=== PATIENT | female | born 2000 | race Caucasian/White ===

== ENCOUNTER 2021-03-11 22:14 | Emergency (ER) | payer MEDICAID, SELFPAY ==
--- NOTE | 2021-03-12 00:50 | EX.ED.DYSGE1 ---
HPI Narrative Narrative: Patient is a 20-year-old female who states that she typically has bouts of nausea and vomiting around her menstrual cycle. She states it is about the time of the month for her menstrual cycle to begin in today she developed generalized abdominal discomfort with bouts of vomiting. She states that the vomiting seems more intense than it typically is with her menstrual cycle and secondary to this she comes in for evaluation. ROS ROS ED Constitutional Constitutional ED: Denies chills or fever(s) ENT ENT ED: Denies sore throat Cardiovascular Cardiovascular: Denies chest pain Respiratory/Chest Respiratory/Chest: Denies cough or dyspnea Gastrointestinal Gastrointestinal: Reports abdominal pain, nausea and vomiting; Denies diarrhea Genitourinary Genitourinary ED: Denies dysuria Musculoskeletal Musculoskeletal: Denies myalgias Integumentary Denies rash Neurologic Neurologic: Denies headache(s) Psychiatric Psychiatric: Reports anxiety Hematologic/Lymphatic Hematologic/Lymphatic: Denies easy bleeding or easy bruising EXAM Physical Exam Const Positive well nourished and well developed General Appearance ED: well developed HEENT Reports moist mucous membranes Eyes PERRL and EOMs intact bilaterally Neck supple Resp normal respiratory effort and clear to auscultation bilaterally Cardio regular rate and regular rhythm GI non-distended GI Narrative: Abdomen is soft and nondistended with hyperactive bowel sounds. There is mild diffuse pain on palpation but no voluntary guarding or rigidity Palpation: soft Extremity normal to inspection Neuro oriented x3 and CN's II-XII intact bilaterally Sensorium / Orientation: alert Psych Mood & Affect: anxious Skin no rashes or lesions noted MDM MDM MDM Narrative Medical decision making narrative: Patient presented to the ER in no acute distress with a soft nonsurgical abdomen. Therefore I felt no need for an emergent CT scan. I discussed with patient the need to have an IV placed and provide symptomatic care as well as get basic abdominal labs. Patient states that she does not want an IV or laboratory studies done at this time. I order oral Zofran which did not help her symptoms and therefore she agreed to an IM shot of Phenergan. The Phenergan reduced her symptoms and prevented any further nausea and vomiting. I did order a urine sample to confirm that this was not secondary to . However patient never urinated. She stated that she was feeling better and does not want any further evaluation at this time because the medications have helped. I discussed with her how we do not have a great answer for her symptoms because of her lack of laboratory studies and even a urine sample. Patient states she understands this but as she is feeling better would like to be discharged and therefore as she is awake alert and oriented I will comply with her request at this time Discharge Plan Triage ED Provider: Montrell Gomez Dx/Rx/DC Orders Clinical Impression: Nonspecific abdominal pain, Nausea & vomiting Instructions: Abdominal Pain, ED Vomiting (Adult) Primary Care Provider: Care Physician,No Primary Referrals: Care Physician,No Primary [Primary Care Provider] - Disposition Disposition: Home, Self Care
== END 2021-03-12 01:05 | disposition home or self-care (01) ==
PROVIDERS: Emergency Provider Emergency Medicine; Visit Provider Emergency Medicine
DX: K29.70 Gastritis, unspecified, without bleeding (principal); F41.9 Anxiety disorder, unspecified
CPT/HCPCS: 96372; 99283

== ENCOUNTER 2022-04-19 16:50 | Emergency (ER) | payer MEDICAID, SELFPAY ==
[2022-04-19 16:51] VITALS: BP 129/71; PULSE 120; RESP 18; TEMP 36.2; O2SAT 99; BMI 17.1
--- NOTE | 2022-04-19 17:21 | EX.ED.DYSGE1 ---
HPI History of Present Illness Chief Complaint: General Illness Detail of Chief Complaint: abd pain, vomiting, et al Informant: patient and parent (mother) Narrative Narrative: Patient again having episodes of lower abdominal pain and vomiting which she has been having approximately monthly for the past year or so according to her and mother. Today, she was vomiting without abdominal pain off-and-on, she has had poor oral intake lately including today. She then got into the bathtub at home by herself, she started getting numb and tingling in her fingers and toes bilaterally simultaneously, which then progressed to carpopedal spasms. She was not hyperventilating or anxious prior to this, but she was subsequently since she has never developed this before, she called her mom, she then called EMS who had to break the door down and come into her apartment to help her out of the tubs and she had trouble, now that her mom brought her here to the hospital and EMS helped calm her down, she states the tingling and spasms are completely resolved but she is having the lower abdominal pain and vomiting that she has had episodically for the past year or so. She states the abdominal pain is diffuse pelvic nonlateralizing. States she has been here before for this. She has never followed up as an outpatient for it. She does not see an FUNDS TRANSFER CLERK. She denies being that she knows of. She thinks her last normal menstrual period was 4 or 5 weeks ago she is not exactly sure. She states she thinks she may be starting soon but has no vaginal discharge or bleeding now. During the initial history, the patient is vomiting a couple times, there are specks of bile in it but no food or blood or coffee grounds, which makes her more anxious and tearful, subsequently after she vomits another time, she states suddenly she feels amazing and back to normal with complete resolution of her nausea and pelvic pain. PFSH PFSH Medical History no medical history no medical history Home Medications ondansetron 4 mg disintegrating tablet 8 mg PO Q8H PRN PRN Nausea #20 tabs 04/19/22 [Rx Last Taken Unknown] Allergy/AdvReac Type Severity Reaction Status Date / Time No Known Allergies Allergy Verified 04/19/22 16:55 Social History (Updated 04/19/22 @ 17:[address] Noe Mei MD) Smoking Status: Never smoker substance use type: marijuana ROS ROS ED Constitutional Constitutional ED: Denies chills or fever(s) Eyes Eyes: Denies change in vision or diplopia ENT ENT ED: Denies rhinorrhea or sore throat Cardiovascular Cardiovascular: Denies chest pain or palpitations Respiratory/Chest Respiratory/Chest: Denies cough or dyspnea Gastrointestinal Gastrointestinal: Reports abdominal pain, nausea and vomiting; Denies diarrhea or melena Genitourinary Genitourinary ED: Denies dysuria or hematuria Musculoskeletal Musculoskeletal: Denies back pain or neck pain Integumentary Denies abscess or rash Neurologic Neurologic: Reports paresthesias RUE, RLE, LUE and LLE; Denies headache(s) or weakness Psychiatric Psychiatric: Reports anxiety; Denies suicidal thoughts EXAM Physical Exam Const Vital Signs: 04/19/22 16:51 Temperature 97.2 F L Temperature Source Temporal Pulse Rate 120 H Respiratory Rate 18 Blood Pressure 129/71 H Blood Pressure Mean 90 Pulse Ox 99 Oxygen Delivery Method Room Air Positive well nourished and well developed General Appearance ED: well developed and NAD HEENT Reports moist mucous membranes normocephalic and atraumatic Eyes PERRL and EOMs intact bilaterally Neck full ROM and supple Resp normal respiratory effort and clear to auscultation bilaterally Cardio regular rate, regular rhythm and no murmurs GI non-tender and non-distended Auscultation: normoactive bowel sounds Palpation: soft Back/Spine no CVA tenderness General Back: other FROM Extremity normal to inspection General Extremety ED: Negative for edema, pulses abnormal or tenderness General Extremity: Negative for edema or pulses abnormal Neuro oriented x3, CN's II-XII intact bilaterally and no sensory deficits noted Sensorium / Orientation: awake and alert Motor Exam: strength 5/5 throughout Psych Psych Narrative: labile. initially tearful and panicky, later after vomiting, smiling and better. Skin no rashes or lesions noted and no wounds MDM MDM MDM Narrative Medical decision making narrative: Nursing attempted to obtain blood work and get an IV to give medications and fluids to the patient, but she became too anxious and then refused. We will give her some time and I went back to check on her and she said that she was amenable to having the nurse try again, but upon poking her with a needle the patient jerked out of the way, and refuses again saying that she changes her mind and states there is no way she can do this. She appears well and her vital signs are now normal. She was given ODT Zofran for the nausea and had no more vomiting here in the ED. I had a long talk with her with her mother present, about using marijuana. She admits that she uses it often, and specifically is using [id number]. I discussed with her the possibility that that is causing all of this and she has cannabis hyperemesis syndrome. I recommend that she discontinue using cannabis given all of these symptoms, and I am okay with her going home which she wants to do at this time. I gave her a prescription for Zofran. I gave her discharge instructions regarding cannabis hyperemesis syndrome, and we also discussed the differential could be including uterine cramping as etiology of her pain and vomiting. We discussed consideration of a pelvic ultrasound, however I do not think that is indicated emergently at this time since she is completely nontender and unlikely has a ruptured ovarian cyst or ovarian torsion as cause for the symptoms, we discussed those diagnoses in detail and she and mother both agree that that is very unlikely especially given that she has been having it monthly. I do advise outpatient FUNDS TRANSFER CLERK follow-up especially if she continues having symptoms despite discontinuing cannabis or its metabolites/alternatives. Discharge Plan Triage Chief Complaint: General Illness ED Provider: Noe Mei Dx/Rx/DC Orders Clinical Impression: Vomiting, Female pelvic pain, Cannabis use disorder Instructions: Cannabinoid Hyperemesis Syndrome, Understanding Synthetic Marijuana, ED Hyperventilation Syndrome Prescriptions: New ondansetron [ondansetron] 4 mg tablet,disintegrating 8 mg PO Q8H PRN PRN (Reason: Nausea) Qty: 20 0RF Primary Care Provider: Care Physician,No Primary Referrals: Catherine Mojica MD [Med Staff - Active Staff] - (call for follow up regarding your monthly abdominal pains/vomiting) Disposition Disposition: Home, Self Care
--- NOTE | 2022-04-19 18:15 | ED.RN ---
PT REFUSES X2 FOR THIS RN TO START AN IV OR OBTAIN BLOOD WORK
== END 2022-04-19 18:55 | disposition home or self-care (01) ==
PROVIDERS: Emergency Provider Emergency Medicine; Visit Provider Emergency Medicine
DX: R11.10 Vomiting, unspecified (principal); R10.2 Pelvic and perineal pain; F12.90 Cannabis use, unspecified, uncomplicated
CPT/HCPCS: 99282; J7030

== ENCOUNTER 2023-10-31 01:59 | Emergency (ER) | payer SELFPAY ==
[2023-10-31 01:59] VITALS: BP 126/70; PULSE 75; RESP 16; TEMP 36.8; BMI 19.1
--- NOTE | 2023-10-31 02:09 | ED.VIS.GI ---
HPI HPI - GI History of Present Illness Chief Complaint: Abd Pain Informant: patient Abdominal Pain/Flank Pain Onset: Days Context: Gradual Onset Timing: Continuous Quality: Cramping Location: Diffuse Current Severity: Mild Maximum Severity: Moderate Worsened by: Nothing Relieved by: Nothing Nausea/Vomiting/Emesis GI Symptom: Positive for Nausea and Vomiting Onset: Days Severity: Mild Diarrhea/Melena/Hematochezia GI Symptom: Negative for Diarrhea, Melena or Hematochezia Associated Symptoms Associated Symptoms: Negative for Dysuria, Frequency, Hematuria or Urgency Narrative Narrative: 22-year-old female currently on her menstrual period no seen past medical or surgical history. Planing of 2-day history of abdominal pain began on Saturday. Associated nausea vomiting. No dysuria. No fever. No diarrhea or constipation. She is on her menstrual cycle and that started around Saturday. Denies any discharge. No abdominal trauma. No prior abdominal surgeries. Prior similar symptoms: Yes Recent Illness/Hospitalization: No PFSH PFSH Medical History no medical history no medical history Home Medications ?Medication ?Instructions ?Recorded ?Last Taken ?Type ondansetron 4 mg disintegrating 8 mg (2 x 4 mg) PO Q8H PRN PRN 04/19/22 Unknown Rx tablet Nausea #20 tabs ondansetron 4 mg disintegrating 4 mg PO Q6H PRN nausea and 10/31/23 Unknown Rx tablet vomiting #10 tabs Allergy/AdvReac Type Severity Reaction Status Date / Time No Known Allergies Allergy Verified 10/31/23 01:59 Family History no significant family his Surgical History no surgical history no surgical history Social History Smoking Status: Never smoker substance use type: marijuana ROS ROS ED ROS Narrative Abdominal cramping. Nausea and vomiting. Constitutional Constitutional ED: Denies chills or fever(s) ENT ENT ED: Denies ear pain Cardiovascular Cardiovascular: Denies chest pain Respiratory/Chest Respiratory/Chest: Denies cough or dyspnea Gastrointestinal Gastrointestinal: Reports abdominal pain, nausea and vomiting; Denies constipation, diarrhea or melena Genitourinary Genitourinary ED: Denies dysuria or hematuria Musculoskeletal Musculoskeletal: Denies arthralgias or back pain Integumentary Denies abscess Neurologic Neurologic: Denies headache(s) Psychiatric Psychiatric: Denies anxiety Endocrine Endocrinology: Denies polydipsia Hematologic/Lymphatic Hematologic/Lymphatic: Denies easy bleeding Allergic/Immunologic Allergic/Immunologic ED: Denies mouth swelling EXAM Physical Exam Narrative Exam Narrative: 22-year-old female no acute distress tearful due to abdominal cramping. Significant other and I believe her mom are present the room. Vital signs are stable afebrile. She does not look septic or toxic. She does not look significantly dehydrated. H EENT exam unremarkable. Moist extremities. Neck nontender. No lymphadenopathy. Back nontender. Lungs clear. Heart regular rhythm rate about 75 no murmur. Chest wall and ribs nontender. Abdomen soft, nondistended, normal bowel sounds without peritoneal signs. There is no hernia or masses. No signs of obstruction or distention. No ascites. She has no localizing tenderness in either right upper or right lower quadrant. Her abdomen soft and really nontender. Moving all 4 extremities. Awake and alert. No focal motor deficits. Answering questions following commands. Const Vital Signs: 10/31/23 01:59 Temperature 98.2 F Temperature Source Oral Pulse Rate 75 Respiratory Rate 16 Blood Pressure 126/70 H Blood Pressure Mean 88 Oxygen Delivery Method Room Air Positive well nourished and well developed; Negative for obese, cachectic, contractures or unkempt General Appearance ED: well developed and NAD; Negative for unkempt, cachectic, contractures or pallor Nutritional Appearance: Negative for cachectic or obese HEENT Reports moist mucous membranes normocephalic and atraumatic; Negative for trauma or tenderness Eyes PERRL and EOMs intact bilaterally General Eye ED: Negative for pale conjunctiva or scleral icterus Neck no lymphadenopathy, supple and no JVD General: Negative for tenderness Carotids: Negative for other Lymph Lymphatic: Negative for other Resp normal respiratory effort and clear to auscultation bilaterally Effort and Inspection: Negative for respiratory distress Auscultation: Negative for rales, rhonchi, wheezes or diminished lung sounds Cardio regular rate, regular rhythm, S1 normal heart sound, S2 normal heart sound and no murmurs Rate: Negative for bradycardia or tachycardic Rhythm: Negative for abnormal rhythm GI non-tender, non-distended and no masses Inspection: Negative for abdominal distention Auscultation: normoactive bowel sounds Palpation: soft; Negative for tender, guarding, rigid, hepatomegaly, splenomegaly, hernia, mass, pulsatile mass or rebound tenderness present Back/Spine no CVA tenderness General Back: Negative for CVA tenderness Cervical Spine: Negative for cervical spine tenderness Thoracic Spine / Upper Back: Negative for thoracic spinal tenderness Lumbar Spine / Lower Back: Negative for lumbar spinal tenderness Extremity full ROM General Extremety ED: Negative for edema or tenderness General Extremity: Negative for edema Neuro CN's II-XII intact bilaterally and moves all extremities Sensorium / Orientation: alert, oriented to person, oriented to place and oriented to time; Negative for orientation impaired or confused Motor Exam: strength 5/5 throughout Psych mental status grossly normal and thought process normal Appearance: Negative for unkempt Attitude: No agitated Mood & Affect: anxious and tearful; Negative for depressed Skin no wounds General Skin Exam: Negative for jaundice or pallor Lesions: no lesions Rashes: no rashes Trauma: Negative for abrasion Nails: Negative for discolored MDM MDM MDM Narrative Medical decision making narrative: 22-year-old female with nausea and vomiting abdominal cramping and on her menstrual cycle. Abdominal exam is completely nontender. Screening labs will be obtained. At this time I do not think she needs any imaging. She had a history in the past with prior visit with marijuana induced vomiting. She be treated IV fluids, Toradol for pain and Zofran. Repeat exam at 2:50 PM. The patient clinically looks improved. She is not actively vomiting. She will be given another dose of Zofran for nausea. Her abdomen is completely nontender. Nondistended. Benign exam and unchanged. We discussed the possibility of this being secondary to marijuana use which she does do. She will be discharged home. Fluids. Increase diet slowly and Zofran prescription. History & Record Review Discussion w/independent historian: Patient, Family and Significant other Additional record(s) reviewed:: Prior outpatient record Lab Data Attestation: I reviewed the patient's lab results. Lab results narrative: CBC shows white count 11.1. H&H 11.3 and 34. Platelets 211. Electrolytes show potassium 3.2. Gap 9. Normal BUN and creatinine of 8 and 0.6. Glucose 154. Liver enzymes unremarkable. Lipase normal at 15. Serum test negative. Urinalysis shows no signs of infection. No white or red cells. No nitrates. No bacteria. Labs: Laboratory Results - last 24 hr 10/31/23 10/31/23 02:03 02:25 WBC 11.1 H RBC 3.86 L Hgb 11.3 L Hct 34.1 L MCV 88.3 MCH 29.3 MCHC 33.1 RDW Std Deviation 43.8 RDW Coeff of [place] 13.6 Plt Count 211 MPV 9.5 Immature Gran % (Auto) 0.300 Neut % (Auto) 89.9 H Lymph % (Auto) 6.7 L [place] % (Auto) 2.7 Eos % (Auto) 0.1 Baso % (Auto) 0.3 Absolute Neuts (auto) 10.0 H Absolute Lymphs (auto) 0.74 L Nucleated RBC % 0 Sodium 140 Potassium 3.2 L Chloride 108 H Carbon Dioxide 23.0 Anion Gap 9 BUN 8 Creatinine 0.65 Estim Creat Clear Calc 122.98 Est GFR (MDRD) Af Amer 146 Est GFR (MDRD) Non-Af 120 BUN/Creatinine Ratio 12.2 Glucose 154 H Calcium 9.7 Total Bilirubin 0.80 AST 14 L ALT 12 L Alkaline Phosphatase 41 L Total Protein 7.3 Albumin 4.4 Globulin 2.9 Albumin/Globulin Ratio 1.5 Lipase 15 Serum , Qual NEGATIVE Urine Color Yellow Urine Clarity Clear Urine pH 8.0 Ur Specific [place] 1.015 Urine Protein 15 H Urine Glucose (UA) Normal Urine Ketones 50 H Urine Occult Blood 50 H Urine Nitrite Negative Urine Bilirubin Negative Urine Urobilinogen Normal Ur Leukocyte Esterase Negative Urine RBC 0-5 SEEN Urine WBC 0-5 SEEN Ur Squamous Epith Cells 0 SEEN Urine Bacteria 0 SEEN Urine Mucus 1+ Discharge Plan Triage Chief Complaint: Abd Pain ED Provider: Quintin Chew Dx/Rx/DC Orders Clinical Impression: Vomiting, Cannabis abuse with cannabis-induced disorder Instructions: ED Vomiting (Adult) Prescriptions: New ondansetron 4 mg tablet,disintegrating 4 mg PO Q6H PRN (Reason: nausea and vomiting) Qty: 10 0RF No Action ondansetron [ondansetron] 4 mg tablet,disintegrating 8 mg PO Q8H PRN PRN (Reason: Nausea) Qty: 20 0RF Primary Care Provider: Care Physician,No Primary Referrals: Nicholas Alvarez MD [Med Staff - Awning Hanger Helper] - 3-5 Days if not improving Care Physician,No Primary [Primary Care Provider] - Activity Restrictions/Additional Instructions: Plenty of fluids and rest. Slowly increase your diet as tolerated. This may be caused by using marijuana. Long-term I would strongly consider stopping. Even when she stopped it may take weeks to months for this to resolve. Zofran as needed for nausea. Follow-up if not improving or return if worse. Print Language: Nepalese Disposition Disposition: Home, Self Care
[2023-10-31] MEDS: 0.9% Normal Saline (1000mL) 1,000 ML 999 ML IV (02:24)
[2023-10-31] MEDS: Ondansetron 4 MG/2 ML Vial IV ×2 (02:24→03:07)
[2023-10-31] MEDS: Ketorolac 30 MG/ML Syringe IV (02:24)
[2023-10-31 02:27] LABS: Bacteria 0 SEEN /hpf (None Seen); Squamous Epithelial Cells - UA 0 SEEN /hpf (5-10)
[2023-10-31 02:27] LABS: Absolute Lymphocyte Count 0.74 X10^3/uL (0.83-4.51); Basophil# 0.03 X10^3/uL; Basophil% 0.3 % (0-1); Eosinophil# 0.01 X10^3/uL; Eosinophils% 0.1 % (0-5); Hematocrit 34.1 % (37-47); Hemoglobin 11.3 g/dL (12.0-15.0); Lymphocyte # 0.74 X10^3/ul (0.83-4.51); Lymphocyte % 6.7 % (19-41); Mean Corp Hgb Conc 33.1 g/dL (32-36); Mean Corpuscular Hgb 29.3 pg (27.0-32.0); Mean Corpuscular Volume 88.3 fL (81-99); Mean Platelet Vol. 9.5 fl (6.2-12.0); Monocyte% 2.7 % (0-10); NRBC Flagged by Analyzer 0 % (0-5); Neutrophil # 9.97 X10^3/uL (2.7-7.7); Neutrophil % 89.9 % (47-70); Platelet Count 211 K/mm3 (150-450); RBC Distribution Width CV 13.6 % (11.6-14.6); RBC Distribution Width SD 43.8 fl (35.1-43.9); Red Blood Count 3.86 M/mm3 (4.2-5.4); White Blood Count 11.1 K/mm3 (4.4-11.0)
[2023-10-31 02:29] LABS: Color, Urine Yellow (Yellow); Glucose, Dipstick Normal (Normal); Ketone-Dipstick 50 mg/dl (Negative); Leukocyte Esterase-Dipstick Negative /ul (Negative); Nitrite-Dipstick Negative (Negative); Occult Blood-Urine 50 /ul (Negative); Protein-Dipstick 15 mg/dl (Negative); Specific Gravity, Urine 1.015 (1.002-1.030); Urine Bilirubin Dipstick Negative (Negative); Urine Clarity Clear (Clear); Urine Urobilinogen Normal (Normal)
[2023-10-31 02:40] LABS: Internal QC Validated? YES +Cl - CLEAR BKGD; Pregnancy, Serum, hCG Quali. NEGATIVE Negative
[2023-10-31 02:44] LABS: ALB/GLOB Ratio 1.5 RATIO (0.9-2.4); AST(SGOT) 14 U/L (15-37); Alanine Aminotransfer ALT/SGPT 12 U/L (13-56); Albumin, Serum 4.4 g/dL (3.2-5.0); Alkaline Phosphatase 41 U/L (45-117); Anion Gap 9 (5-15); BUN 8 mg/dL (7-18); BUN/Creat Ratio 12.2 RATIO (10-20); Calcium,Total 9.7 mg/dL (8.5-10.1); Chloride 108 mmol/L (98-107); Creatinine, Serum 0.65 mg/dL (0.55-1.02); EST Glomerular Filtration Rate 120 mL/min (>60); Est Glom Filt Rate - Afr Amer 146 mL/min (>60); Estimated Creatinine Clearance 122.98 ml/min; Globulin 2.9 g/dL (2.2-4.2); Glucose 154 mg/dL (74-106); Lipase 15 U/L (13-75); Potassium 3.2 mmol/L (3.5-5.1); Protein, Total 7.3 g/dL (6.4-8.2); Sodium Level 140 mmol/L (136-145)
[2023-10-31 02:46] LABS: Mucous, Urine 1+ /hpf (<or=2+); Red Blood Cells-Urine 0-5 SEEN /hpf (0-5); White Blood Cells 0-5 SEEN /hpf (0-5)
[2023-10-31 03:11] VITALS: BP 128/79; PULSE 75; RESP 16; TEMP 36.8; O2SAT 100
== END 2023-10-31 03:12 | disposition home or self-care (01) ==
PROVIDERS: Emergency Provider Emergency Medicine; Visit Provider Emergency Medicine
DX: R11.2 Nausea with vomiting, unspecified (principal); F12.10 Cannabis abuse, uncomplicated
CPT/HCPCS: 80053; 81001; 83690; 84703; 85025; 96361; 96374; 96375; 99283; J7030; A4216; J2405